=== PATIENT | male | born 1945 | race Caucasian/White ===

== ENCOUNTER → 2019-12-25 | Outpatient (CLI) | payer MEDICARE ==
--- NOTE | 2019-12-25 15:05 | RAD ---
EXAM: LUMBAR SPINE 2-3V, HIP RIGHT 2 VIEW 12/25/2019 12:00 AM CLINICAL INDICATION:Right hip pain. Back and hip pain. COMPARISON:None TECHNIQUE:AP, lateral, and coned-down lateral views of the lumbar spine. AP and frog lateral views of the right hip. FINDINGS: Lumbar spine: The bones are diffusely demineralized. There is transitional anatomy at the lumbosacral junction with partial sacralization of L5 on the right. No acute fracture. Alignment is normal. There is mild disc space narrowing with small anterior osteophyte throughout the lumbar spine. Facet arthrosis is seen at L4-L5 and L5-S1. Right hip: The bones are diffusely demineralized, limiting evaluation for nondisplaced fracture. No definite fracture. There are small acetabular and femoral head osteophytes with relatively maintained hip joint space. The right sacroiliac joint and pubic symphysis are unremarkable. IMPRESSION: 1. Osteopenia. 2. Mild multilevel degenerative disc disease of the lumbar spine. Lower lumbar facet arthrosis. 3. 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 Electronically signed by: Sherry Alvarez MD (12/25/2019 3:02 PM) [id number]
--- NOTE | 2019-12-25 15:57 | RAD ---
INDICATION: Scrotal mass COMPARISON: None. TECHNIQUE: Grayscale, color and spectral doppler ultrasound images obtained of the scrotum. FINDINGS: Right Testicle: 51 x 46 x 18 mm. Vascular flow is identified. Left Testicle: 52 x 34 x 23 mm. Vascular flow is identified. There are several bilateral cystic lesions superficial to the testicle with the largest on the right measuring 146 x 75 x 63 mm and largest on the left 34 x 30 x 28 mm. Prominent rete testes bilaterally. IMPRESSION: * Vascular flow is identified to the bilateral testicles. * Large cysts are seen adjacent to the testicles bilaterally which is commonly epididymal in origin. Electronically signed by: Jaya Linder MD (12/25/2019 3:54 PM) [id number]
== END | disposition home or self-care (01) ==
LOC: US 14:39
PROVIDERS: ATTEND Family Medicine
DX: M47.817 Spondylosis without myelopathy or radiculopathy, lumbosacral region (principal); M16.11 Unilateral primary osteoarthritis, right hip; M51.36 Other intervertebral disc degeneration, lumbar region; M85.88 Other specified disorders of bone density and structure, other site; N44.2 Benign cyst of testis
CPT/HCPCS: 72100; 73502; 76870